=== PATIENT | male | born 1965 | race Two or more races ===

== ENCOUNTER 2025-03-04 07:26 | Emergency (ER) | payer MEDICAID, OTHER ==
[~2025-03-04] VITALS: Ht 177.8 cm; Wt 70.8 kg
[2025-03-04 07:39] VITALS: TEMP 98.5
[2025-03-04 08:12] LABS: PLATELET COUNT (AUTO) 320 K/uL (150-450); RED BLOOD CELL COUNT(AUTO) 4.98 MIL/uL (4.5-6.0); RED CELL DISTRIBUTION WIDTH 13.0 % (11.5-15.0); WHITE BLOOD COUNT (AUTO) 9.6 K/uL (4.3-11.0)
[2025-03-04 08:26] LABS: CALCIUM, SERUM 8.8 mg/dL (8.5-10.1); CREATININE 0.9 mg/dL (0.6-1.3); SODIUM SERUM 137.0 mmol/L (136-145); UREA NITROGEN, BLOOD 11.0 mg/dL (7-18)
[2025-03-04 08:42] LABS: ASPARTATE AMINOTRANSFERASE 10.0 U/L (15-37); TOTAL PROTEIN, SERUM 7.2 g/dL (6.4-8.2)
[2025-03-04] MEDS ORDERED: IOHEXOL-300 100 ML VIAL IV ONE (08:59)
[2025-03-04] MEDS ORDERED: CT SWABBABLE VALVE TRANS SET 1 EA INFUS.SET MC ONE (08:59)
[2025-03-04] MEDS ORDERED: IV NS 0.9% 250 ML IV ONE (08:59)
[2025-03-04] MEDS ORDERED: POLY17PO4 PO (11:02)
[2025-03-04] MEDS ORDERED: MAGNESIUM CITRATE 296 ML BOTTLE ONE (11:48)
[2025-03-04] MEDS: MAGNESIUM CITRATE 296 ML BOTTLE PO ONE (11:49)
[2025-03-04 13:16] VITALS: BP 136/88; O2SAT 97
== END 2025-03-04 12:49 ==
LOC: ER 07:34
DX: R10.32 Left lower quadrant pain (principal); K59.00 Constipation, unspecified; I10 Essential (primary) hypertension; E11.9 Type 2 diabetes mellitus without complications; E78.00 Pure hypercholesterolemia, unspecified; F20.0 Paranoid schizophrenia
CPT/HCPCS: 99285; 74177; 85025; 80048; 83690; 80076; 36415; J7050; Q9967